=== PATIENT | female | born 1990 | race Asian ===

== ENCOUNTER 2016-10-01 07:11 | Inpatient (IN) | payer OTHER ==
[~2016-10-01] VITALS: Ht 157.5 cm; Wt 77.5 kg
[2016-10-01 07:24] VITALS: BP 146/86; PULSE 86; RESP 16; Ht 157.5 cm; Wt 77.5 kg
[2016-10-01] MEDS ORDERED: PRENAT PO (07:27)
--- NOTE | 2016-10-01 07:33 | TRIAGE ---
OB Triage Datetime Report Generated by CPN: 10/01/2016 07:32 Datetime: 10/01/2016 07:21 Assessment Type: Triage Maternal Assessment Level of Consciousness: Fully Conscious DTR's/Clonus: DTRs 2+ Headache: Denies Blurred Vision: No Respiratory Effort: Unlabored; Regular Rhythm; Equal Expansion Breath Sounds, Left: Clear and Equal Breath Sounds, Right: Clear and Equal Nausea/Vomiting: Denies RUQ Epigastric Pain: Denies Lower Extremities Edema: None Degree: None Upper Extremities Edema: numbness on both hands Fall Risk Assessment History of Falling: (0) No Secondary Diagnosis: (0) No Ambulatory Aid: (0) Bedrest/Nurse Assist IV Therapy: (0) No Gait: (0) Normal/Bedrest/Immobile Mental Status: (0) Oriented to Own Ability Fall Score: 0 Fall Risk Score Definition: No Risk: No action required Datetime: 10/01/2016 07:20 EGA: 40.6 Datetime: 10/01/2016 07:18 Time of Arrival: 10/01/2016 07:00 Arrived By: Ambulatory Arrived From: Home Chief Complaint: pt. came to hospital with prescription for nst, u/s for bpp, efw due to post date Movement: Present Contractions: Denies/Absent Rupture of Membranes: Denies Vaginal Bleeding: None Vaginal Discharge: Denies Recent Sexual Intercouse: Denies Abdominal Trauma: Not Applicable Patient Complaints: None Time Provider Notified: 10/01/2016 07:22 Provider Notified: jam Initial Plan: u/s for bpp, efw, nst
[2016-10-01] MEDS ORDERED: LACTATED RINGER'S 1,000 ML IV SCH (07:54)
[2016-10-01] MEDS ORDERED: OXYTOCIN 30 UNITS/LR 500 ML IV PRN ×2 (08:00→12:00)
[2016-10-01] MEDS ORDERED: METHYLERGONOVINE 0.2 MG INJ IM PRN ×2 (08:00→12:00)
[2016-10-01] MEDS ORDERED: OXYTOCIN 30 UNITS/LR 500 ML IV SCH (08:00)
[2016-10-01] MEDS ORDERED: CEFAZOLIN 2 GM/50 ML (PMX) 50 ML IVPB SCH (08:00)
[2016-10-01] MEDS ORDERED: MISOPROSTOL 200 MCG TAB PR PRN ×2 (08:00→12:00)
[2016-10-01] MEDS ORDERED: CARBOPROST 250 MCG INJ IM PRN ×2 (08:00→12:00)
--- NOTE | 2016-10-01 08:08 | RADRPT ---
PROCEDURE: US OB. CLINICAL INDICATION: Size and dates , post dates TECHNIQUE: Multiple sonographic images of the pelvis and gravid uterus were obtained. The images were reviewed on a PACS workstation. COMPARISON: No prior studies are available for comparison. FINDINGS: There is a single viable intrauterine gestation. Cardiac activity is present with 132 beats per min edward. There is a breech presentation. The placenta is posterior. There is no evidence for an abruption or placenta previa. There is a decreased amount of amniotic fluid with an SHIVA = 5.1 cm. Measurements were made in order to determine age. The results are as follows: BPD =10 cm HC =35.9 cm AC =36.8 cm FL =6.8 cm Estimated gestational age of approximately 38 weeks and 6 days based on ultrasound measurements. Clinical age: 40 weeks and 6 days. The estimated date of delivery is 10/09/16, based on ultrasound measurements. The EFW = 3892 g, 60.6%, based on LMP age. RPTAT: AA IMPRESSION: Single viable intrauterine gestation of approximately 38 weeks and 6 days based on ultrasound measu rements. Oligohydramnios. .Osman Juan MD, Date Time Electronically viewed and signed by .Osman Juan MD, on 10/01/2016 08:08 .S/
--- NOTE | 2016-10-01 08:09 | RADRPT ---
PROCEDURE: US OB biophysical profile. CLINICAL INDICATION: decreased movements TECHNIQUE: Multiple sonographic images of the pelvis were obtained. The images were reviewed on a PACS workstation. COMPARISON: No prior studies are available for comparison. FINDINGS: There is a single viable intrauterine gestation. Cardiac activity is present with 134 beats per min edward. There is a breech presentation. The placenta is posterior. There is no evidence of placental abruption. There is a decreased amount of amniotic fluid with an SHIVA = 5.1 cm. Biophysical profile: movement 2/2 tone 2/2. breathing 2/2 SHIVA 2/2 Total 01/29 RPTAT: AA . IMPRESSION: Normal biophysical profile. Oligohydramnios. . .Osman Juan MD, Date Time Electronically viewed and signed by .Osman Juan MD, MD on 10/01/2016 08:08 .S/
[2016-10-01 08:29] LABS: ADD SCAN DIFF NO
[2016-10-01 08:32] LABS: BASOPHIL # 0.1 10^3/ul (0.0-0.1); BASOPHILS % 0.6 % (0.0-2.0); EOSINOPHILS # 0.5 10^3/ul (0.0-0.5); HEMATOCRIT 39.4 % (37.0-47.0); LYMPHOCYTES # 3.1 10^3/ul (0.8-2.9); LYMPHOCYTES % 25.8 % (15.0-51.0); MEAN CORPUSCULAR HEMOGLOBIN 33.9 pg (29.0-33.0); MEAN CORPUSCULAR HGB CONC 35.5 g/dl (32.0-37.0); MEAN CORPUSCULAR VOLUME 95.4 fl (82.0-101.0); MEAN PLATELET VOLUME 11.5 fl (7.4-10.4); MONOCYTES % 8.4 % (0.0-11.0); NEUTROPHIL # 6.8 10^3/ul (1.6-7.5); NEUTROPHILS % 57.3 % (39.0-77.0); PLATELET COUNT 201 10^3/UL (140-415); RED BLOOD COUNT 4.13 10^6/ul (4.20-5.40); RED CELL DISTRIBUTION WIDTH 12.5 % (11.5-14.5); WHITE BLOOD COUNT 11.8 10^3/ul (4.8-10.8)
[2016-10-01 08:46] LABS: INR 0.88; PROTIME 11.9 Sec (12.2-14.2); PT RATIO 0.9
[2016-10-01 08:47] LABS: PARTIAL THROMBOPLASTIN TIME 29.4 Sec (25.0-35.0); POTASSIUM 3.8 mmol/L (3.5-5.1)
[2016-10-01] MEDS ORDERED: ONDANSETRON 4 MG INJ IV STA (08:47)
[2016-10-01 08:49] LABS: BILIRUBIN,INDIRECT 0.4 mg/dl (0-1.1); BILIRUBIN,TOTAL 0.4 mg/dl (0.2-1.3); CREATININE 0.68 mg/dl (0.44-1.00)
[2016-10-01] MEDS ORDERED: ONDANSETRON 4 MG INJ ONE (08:49)
[2016-10-01] MEDS ORDERED: CITRIC ACID/NA CITRATE 30 ML CUP ONE (08:49)
[2016-10-01 08:50] LABS: URIC ACID 6.8 mg/dl (3.1-7.9)
[2016-10-01] MEDS ORDERED: METOCLOPRAMIDE 10 MG INJ ONE (09:00)
[2016-10-01] MEDS ORDERED: OXYTOCIN 10 UNIT INJ ONE (09:00)
[2016-10-01] MEDS ORDERED: CITRIC ACID/NA CITRATE 30 ML CUP PO ONE (09:00)
[2016-10-01] MEDS ORDERED: morphine SULFATE/PF (10 MG/10 ML) INJ ONE (09:00)
[2016-10-01] MEDS ORDERED: PHENYLephrine (100 MCG/ML) 5ML SYG ONE (09:00)
[2016-10-01] MEDS ORDERED: KETOROLAC 30 MG INJ ONE (09:00)
[2016-10-01] MEDS ORDERED: DEXAMETHASONE 4 MG/ML 1 ML INJ ONE (09:00)
[2016-10-01] MEDS ORDERED: HYDROmorphONE 1 MG/ML SYG IV PRN ×2 (10:00)
[2016-10-01] MEDS ORDERED: DIPHENHYDRAMINE 50 MG INJ IV PRN (10:00)
[2016-10-01] MEDS ORDERED: morphine 2 MG INJ IV PRN ×2 (10:00)
[2016-10-01] MEDS ORDERED: KETOROLAC 30 MG INJ IV PRN (10:00)
[2016-10-01] MEDS ORDERED: PROCHLORPERAZINE 10 MG INJ IV PRN (10:00)
[2016-10-01] MEDS ORDERED: NALOXONE (0.4 MG/ML) INJ IV PRN (10:00)
[2016-10-01] MEDS ORDERED: ONDANSETRON 4 MG INJ IV PRN (10:00)
--- NOTE | 2016-10-01 10:08 | HP ---
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 Rubella: immune RPR/VDRL: Negative GBS Status: Negative HBsAG: Negative OB Admission Exam Vital Signs Vital Signs Vital Signs Date Time Temp Pulse Resp B/P Pulse Ox O2 Delivery O2 Flow Rate FiO2 10/01/16 07:24 98.2 86 16 146/86 Physical Exam HEENT: WNL Heart: Rhythm Normal Lungs: Clear, Equal Abdomen: WNL Reflexes: Normal Cervical Dilatation: None Effacement: 0% Station: Other (Breech presented) Membranes: Intact Accelerations: Accelerations Present Decelerations: No Decelerations Varibility: Moderate Contractions on Admission: None Last 72 hours Lab Results CBC & BMP 10/01/16 08:15 Liver Function Test 10/01/16 08:15 Alanine Aminotransferase (ALT/SGPT) 21 Albumin 4.0 Alkaline Phosphatase 144 H Aspartate Amino Transf (AST/SGOT) 28 Direct Bilirubin 0.00 Total Protein 8.0 MT FIGUEROA MD Oct 01, 2016 10:08
--- NOTE | 2016-10-01 10:49 | OPR ---
DATE OF OPERATION: 10/01/2016 PREOPERATIVE DIAGNOSIS: Forty weeks 6 days breech presentation. POSTOPERATIVE DIAGNOSIS: Forty weeks 6 days with breech presentation. OPERATION PERFORMED: Primary transverse low cervical section. SURGEON: Mt Fonseca MD CHEMICAL ENGINEERING TECHNOLOGIST: Sal Mcdermott MD ANESTHESIA: Spinal. ANESTHESIOLOGIST: Agustin Baer MD FINDINGS: Live baby girl with the 9 and 9. DETAILS OF THE PROCEDURE: Under satisfactory spinal anesthesia, the patient was prepped and draped and placed in supine position, tilted to the left. Pfannenstiel incision was made, incision carried through the subcutaneous tissue. Bleeders brought under control with electrocautery. Fascia incis ed to the length of the incision. Rectus muscle divided in midline. Peritoneum exposed, entered th rough a transverse incision. Exploration of abdomen revealed a gravid uterus at term, normal appear ing tubes and ovaries. Bladder flap was developed. Transverse incision was made in the lower segme nt of the uterus. Amniotic sac ruptured. Meconium stained amniotic fluid noted. Live baby girl wa s delivered from priscilla breech presentation. Shoulders delivered without any difficulty posterior sh oulder first and then the anterior shoulder. Head delivered with Mauriceau maneuver. Cord was clam ped after stop pulsation. Nasal oropharyngeal suction was performed and baby handed to the team for immediate attention. Patient received 20 units of Pitocin. Placenta delivered manually i ntact. It was meconium stained and it was sent to pathology. Uterine cavity cleaned with wet spong e and drainage established. Uterus closed in 2 layers using Monocryl #1 in continuous fashion. Per itoneal cavity irrigated with warm saline. Sponge, needle and instrument reported to be correct. A bdominal peritoneum closed with 2-0 chromic catgut continuously. Rectus muscle approximated and timo sed with #1 PDS in a continuous fashion. Subcutaneous tissue approximated with interrupted 2-0 mixer driver esau catgut. Skin closed with linda. Estimated blood loss 500 to 600 mL. Urine bag contained 200 mL of clear urine. Patient tolerated procedure well, transferred to recovery room in a good condit ion. Dictated By: MT FONSECA MD HF/NTS Conf#: [id number] DID#: [id number] CC: SAL MCDERMOTT MD;*EndCC*
[2016-10-01 11:21] LABS: ADD UMIC YES; URINE BILIRUBIN (Dip) NEGATIVE (NEGATIVE); URINE BLOOD (Dip) TRACE (NEGATIVE); URINE COLOR LT. YELLOW (YELLOW); URINE GLUCOSE (Dip) NEGATIVE (NEGATIVE); URINE KETONES (Dip) NEGATIVE (NEGATIVE); URINE LEUKOCYTE ESTERASE (Dip) NEGATIVE (NEGATIVE); URINE NITRITE (Dip) NEGATIVE (NEGATIVE); URINE TOTAL PROTEIN (Dip) NEGATIVE (NEGATIVE); URINE UROBILINOGEN (Dip) 0.2 E.U./dL (0.1-1.0)
[2016-10-01 11:37] LABS: MUCUS,URINE FEW; SQUAMOUS EPITHELIAL CELL,UR FEW
[2016-10-01] MEDS ORDERED: ACETAMINOPHEN/CODEINE #3 TAB PO PRN ×2 (12:00)
[2016-10-01] MEDS ORDERED: LANOLIN 7 GM TUBE TOP PRN (12:00)
[2016-10-01] MEDS: IBUPROFEN 600 MG TAB PO SCH ×2 (12:00→18:00)
[2016-10-01] MEDS ORDERED: CEFAZOLIN 1 GM/50 ML (PMX) 50 ML IVPB SCH (12:00)
[2016-10-01 12:17] VITALS: BP 125/66; PULSE 63; RESP 18
[2016-10-01 13:00] VITALS: BP 123/68; PULSE 65; RESP 16
[2016-10-01] MEDS: OXYTOCIN 30 UNITS/LR 500 ML IV SCH ×3 (15:19→19:59)
[2016-10-01 16:00] VITALS: BP 131/69; PULSE 70; RESP 16
[2016-10-01 19:30] VITALS: BP 135/75; PULSE 82; RESP 20
[2016-10-01] MEDS: SENNA/DOCUSATE NA (8.6MG/50MG) TAB PO SCH (21:01)
[2016-10-02] VITALS: BP 125/71; PULSE 74; RESP 19
[2016-10-02] MEDS: OXYTOCIN 30 UNITS/LR 500 ML IV SCH ×7 (00:20→23:59)
[2016-10-02 04:00] VITALS: BP 132/69; RESP 19
[2016-10-02] MEDS ORDERED: LACTATED RINGER'S 1,000 ML IV ONE (04:30)
[2016-10-02] MEDS: IBUPROFEN 600 MG TAB PO SCH ×5 (06:00→23:49)
--- NOTE | 2016-10-02 07:10 | OPPN ---
Date/Time of Note Date/Time of Note DATE: 10/02/16 TIME: 07:09 Post-Anesthesia Notes Post-Anesthesia Note Last documented vital signs Vital Signs Date Time Temp Pulse Resp B/P Pulse Ox O2 Delivery O2 Flow Rate FiO2 10/02/16 04:00 98.1 19 132/69 Room Air 10/02/16 03:20 97 21 10/02/16 00:00 74 Activity: WNL Respiratory function: WNL Cardiovascular function: WNL Mental status: Baseline Pain reasonably controlled: Yes Hydration appropriate: Yes Nausea/Vomiting absent: Yes XOCHILT ZEPEDA MD Oct 02, 2016 07:10
[2016-10-02 07:26] VITALS: BP 121/57; PULSE 87; RESP 18
--- NOTE | 2016-10-02 09:46 | PN ---
Date/Time of Note Date/Time of Note DATE: 10/02/16 TIME: 09:45 OB Subjective Subjective Subjective Post day Afebrile vital signs stable abdomen soft mildly distended bowel sounds present uterus firm lochia normal extremity normal Laboratory Tests Test 10/01/16 10:45 Urine Color LT. YELLOW Urine Clarity CLEAR Urine pH 6.5 Urine Specific [place] 1.020 Urine Ketones NEGATIVE Urine Nitrite NEGATIVE Urine Bilirubin NEGATIVE Urine Urobilinogen 0.2 E.U./dL Urine Leukocyte Esterase NEGATIVE Urine Microscopic RBC 2-5/HPF Urine Microscopic WBC 0-2/HPF Urine Squamous Epithelial Cells FEW Urine Mucus FEW Urine Hemoglobin TRACE Urine Glucose NEGATIVE% Urine Total Protein NEGATIVE Current Medications Medications (Trade) Dose Ordered Sig/Mary Route PRN Reason Start Time Stop Time Status Last Admin Dose Admin Lactated Ringer's 1,000 ml @ 125 mls/hr Q8H IV 10/01/16 07:54 10/01/16 12:02 DC 10/01/16 08:07 Cefazolin Sodium/ Dextrose 50 ml @ 100 mls/hr ONCE IVPB 10/01/16 08:00 10/01/16 12:01 DC Oxytocin/Lactated Ringer's 500 ml @ 125 mls/hr ONCE IV 10/01/16 08:00 10/01/16 12:01 DC 10/01/16 11:04 Oxytocin/Lactated Ringer's 500 ml @ 0 mls/hr ONCE PRN IV For Hemorrhage Management 10/01/16 08:00 10/01/16 12:01 DC Methylergonovine Maleate (Methergine) 0.2 mg ONCE PRN IM VAGINAL BLEEDING 10/01/16 08:00 10/01/16 12:02 DC Carboprost Tromethamine (Hemabate) 250 mcg ONCE PRN IM VAGINAL BLEEDING 10/01/16 08:00 10/01/16 12:02 DC Misoprostol (Cytotec) 1,000 mcg ONCE PRN OK VAGINAL BLEEDING 10/01/16 08:00 10/01/16 12:02 DC Citric Acid/ Sodium Citrate (Bicitra) 30 ml ONCE ONCE PO 10/01/16 09:00 10/01/16 09:01 DC 10/01/16 08:45 Ondansetron HCl (Zofran Inj) 4 mg ONCE STAT IV 10/01/16 08:47 10/01/16 08:55 DC 10/01/16 08:45 Citric Acid/ Sodium Citrate (Bicitra) 30 ml STK-MED ONCE .ROUTE 10/01/16 08:49 10/01/16 08:50 DC Ondansetron HCl (Zofran Inj) 4 mg STK-MED ONCE .ROUTE 10/01/16 08:49 10/01/16 08:50 DC Morphine Sulfate (Duramorph) 10 mg STK-MED ONCE .ROUTE 10/01/16 09:00 10/01/16 09:01 DC Phenylephrine HCl (Ken-Synephrine Inj Syg) 500 mcg STK-MED ONCE .ROUTE 10/01/16 09:00 10/01/16 09:01 DC Metoclopramide HCl (Reglan) 10 mg STK-MED ONCE .ROUTE 10/01/16 09:00 10/01/16 09:01 DC Oxytocin (Oxytocin) 10 units STK-MED ONCE .ROUTE 10/01/16 09:00 10/01/16 09:01 DC Ketorolac Tromethamine (Toradol) 30 mg STK-MED ONCE .ROUTE 10/01/16 09:00 10/01/16 09:01 DC Dexamethasone (Decadron) 4 mg STK-MED ONCE .ROUTE 10/01/16 09:00 10/01/16 09:01 DC Naloxone HCl (Narcan) 0.1 mg Q2M PRN IV FOR RESP RATE 8 OR LESS 10/01/16 10:00 10/02/16 08:39 DC Ketorolac Tromethamine (Toradol) 30 mg Q6H PRN IV PAIN 10/01/16 10:00 10/01/16 12:18 DC Morphine Sulfate (morphine) 2 mg Q3H PRN IV PAIN LEVEL 1-5 10/01/16 10:00 10/02/16 08:39 DC Morphine Sulfate (morphine) 4 mg Q3H PRN IV PAIN LEVEL 6-10 10/01/16 10:00 10/02/16 08:39 DC Hydromorphone HCl (Dilaudid) 0.2 mg Q3H PRN IV PAIN LEVEL 1-5 10/01/16 10:00 10/02/16 08:39 DC 10/01/16 17:16 Hydromorphone HCl (Dilaudid) 0.4 mg Q3H PRN IV PAIN LEVEL 6-10 10/01/16 10:00 10/02/16 08:39 DC 10/02/16 07:26 Diphenhydramine HCl (Benadryl) 25 mg Q6H PRN IV ITCHING 10/01/16 10:00 10/02/16 08:39 DC Ondansetron HCl (Zofran Inj) 4 mg Q6H PRN IV NAUSEA AND/OR VOMITING 10/01/16 10:00 10/02/16 08:39 DC Prochlorperazine (Compazine Inj) 10 mg ONCE PRN IV NAUSEA AND/OR VOMITING 10/01/16 10:00 10/02/16 08:39 DC Miscellaneous Information (* Miscellaneous Pharmacy Order) Duramorph: 0.2 mg Spi... GIVEN XX 10/01/16 10:00 10/01/16 12:02 DC Acetaminophen/ Codeine Phosphate (Tylenol No.3) 1 tab Q4H PRN PO PAIN LEVEL 4-6 10/01/16 12:00 Acetaminophen/ Codeine Phosphate (Tylenol No.3) 2 tab Q4H PRN PO PAIN LEVEL 7-10 10/01/16 12:00 Oxycodone/ Acetaminophen (Percocet (5/ 325)) 1 tab Q4H PRN PO PAIN LEVEL 4-6 10/01/16 12:00 Oxycodone/ Acetaminophen (Percocet (5/ 325)) 2 tab Q4H PRN PO PAIN LEVEL 7-10 10/01/16 12:00 Ibuprofen (Motrin) 600 mg Q6 PO 10/01/16 12:00 Simethicone (Mylicon) 160 mg Q8H PRN PO DISTENSION/GAS/BLOATING 10/01/16 12:00 Senna/Docusate Sodium (Senokot-S) 1 tab BID PO 10/01/16 21:00 10/01/16 21:01 Lanolin (Nfj-U-Dnowdu) 1 applic BEDSIDE MEDICATION PRN TOP BEDSIDE FOR TITUS TO NIPPLES 10/01/16 12:00 Diphtheria/ Tetanus/Acell Pertussis 0.5 ml 0.5 ml ONCE ONCE IM* 10/04/16 09:00 10/04/16 09:01 Oxytocin/Lactated Ringer's 500 ml @ 0 mls/hr ONCE PRN IV For Hemorrhage Management 10/01/16 12:00 Methylergonovine Maleate (Methergine) 0.2 mg ONCE PRN IM VAGINAL BLEEDING 10/01/16 12:00 Carboprost Tromethamine (Hemabate) 250 mcg ONCE PRN IM VAGINAL BLEEDING 10/01/16 12:00 Misoprostol 1000 mcg 1,000 mcg ONCE PRN OK VAGINAL BLEEDING 10/01/16 12:00 Cefazolin Sodium 50 ml @ 100 mls/hr ONCE IVPB 10/01/16 12:00 10/01/16 12:29 DC 10/01/16 17:07 Oxytocin/Lactated Ringer's 500 ml @ 125 mls/hr Q4H IV 10/01/16 11:59 10/02/16 00:20 Lactated Ringer's (Lr) 1,000 ml @ 125 mls/hr Q8H ONCE IV 10/02/16 04:30 10/02/16 12:29 10/02/16 04:28 ambulation recommended MT FIGUEROA MD Oct 02, 2016 09:46
[2016-10-02 09:57] LABS: ADD SCAN DIFF NO
[2016-10-02 10:02] LABS: BASOPHILS % 0.2 % (0.0-2.0); EOSINOPHILS # 0.2 10^3/ul (0.0-0.5); HEMATOCRIT 33.3 % (37.0-47.0); HEMOGLOBIN 11.4 g/dl (12.0-16.0); LYMPHOCYTES # 3.1 10^3/ul (0.8-2.9); LYMPHOCYTES % 17.7 % (15.0-51.0); MEAN CORPUSCULAR HEMOGLOBIN 32.9 pg (29.0-33.0); MEAN CORPUSCULAR HGB CONC 34.2 g/dl (32.0-37.0); MEAN CORPUSCULAR VOLUME 96.2 fl (82.0-101.0); MEAN PLATELET VOLUME 11.5 fl (7.4-10.4); MONOCYTE # 1.2 10^3/ul (0.3-0.9); MONOCYTES % 6.6 % (0.0-11.0); NEUTROPHIL # 12.8 10^3/ul (1.6-7.5); PLATELET COUNT 179 10^3/UL (140-415); RED BLOOD COUNT 3.46 10^6/ul (4.20-5.40); RED CELL DISTRIBUTION WIDTH 12.9 % (11.5-14.5); WHITE BLOOD COUNT 17.5 10^3/ul (4.8-10.8)
[2016-10-02] MEDS: SENNA/DOCUSATE NA (8.6MG/50MG) TAB PO SCH ×2 (11:10→21:02)
[2016-10-02] MEDS: OXYCODONE/ACETAMINOPHEN (5/325) TAB PO PRN ×3 (11:11→22:57)
[2016-10-02 16:00] VITALS: BP 124/74; PULSE 65; RESP 16
[2016-10-02 19:35] VITALS: BP 123/61; PULSE 80
[2016-10-03] MEDS: OXYTOCIN 30 UNITS/LR 500 ML IV SCH ×3 (03:59→11:59)
[2016-10-03 04:20] VITALS: BP 128/70; RESP 18
[2016-10-03] MEDS: IBUPROFEN 600 MG TAB PO SCH ×3 (05:44→18:09)
[2016-10-03 08:15] VITALS: BP 116/69; PULSE 77; RESP 16
--- NOTE | 2016-10-03 08:41 | PN ---
Date/Time of Note Date/Time of Note DATE: 10/03/16 TIME: 08:40 OB Subjective Subjective Subjective Post day 1 Afebrile vital signs stable, abdomen soft mildly distended good bowel sounds, incision dry, extremities normal, ambulation recommended Laboratory Tests Test 10/02/16 09:53 White Blood Count 17.510^3/ul Red Blood Count 3.4610^6/ul Hemoglobin 11.4g/dl Hematocrit 33.3% Mean Corpuscular Volume 96.2fl Mean Corpuscular Hemoglobin 32.9pg Mean Corpuscular Hemoglobin Concent 34.2g/dl Red Cell Distribution Width 12.9% Platelet Count 14409^3/UL Mean Platelet Volume 11.5fl Neutrophils % 73.0% Lymphocytes % 17.7% Monocytes % 6.6% Eosinophils % 1.0% Basophils % 0.2% Nucleated Red Blood Cells % 0.0/100WBC Neutrophils # 12.810^3/ul Lymphocytes # 3.110^3/ul Monocytes # 1.210^3/ul Eosinophils # 0.210^3/ul Basophils # 0.010^3/ul Nucleated Red Blood Cells # 0.010^3/ul Current Medications Medications (Trade) Dose Ordered Sig/Mary Route PRN Reason Start Time Stop Time Status Last Admin Dose Admin Lactated Ringer's 1,000 ml @ 125 mls/hr Q8H IV 10/01/16 07:54 10/01/16 12:02 DC 10/01/16 08:07 Cefazolin Sodium/ Dextrose 50 ml @ 100 mls/hr ONCE IVPB 10/01/16 08:00 10/01/16 12:01 DC Oxytocin/Lactated Ringer's 500 ml @ 125 mls/hr ONCE IV 10/01/16 08:00 10/01/16 12:01 DC 10/01/16 11:04 Oxytocin/Lactated Ringer's 500 ml @ 0 mls/hr ONCE PRN IV For Hemorrhage Management 10/01/16 08:00 10/01/16 12:01 DC Methylergonovine Maleate (Methergine) 0.2 mg ONCE PRN IM VAGINAL BLEEDING 10/01/16 08:00 10/01/16 12:02 DC Carboprost Tromethamine (Hemabate) 250 mcg ONCE PRN IM VAGINAL BLEEDING 10/01/16 08:00 10/01/16 12:02 DC Misoprostol (Cytotec) 1,000 mcg ONCE PRN MO VAGINAL BLEEDING 10/01/16 08:00 10/01/16 12:02 DC Citric Acid/ Sodium Citrate (Bicitra) 30 ml ONCE ONCE PO 10/01/16 09:00 10/01/16 09:01 DC 10/01/16 08:45 Ondansetron HCl (Zofran Inj) 4 mg ONCE STAT IV 10/01/16 08:47 10/01/16 08:55 DC 10/01/16 08:45 Citric Acid/ Sodium Citrate (Bicitra) 30 ml STK-MED ONCE .ROUTE 10/01/16 08:49 10/01/16 08:50 DC Ondansetron HCl (Zofran Inj) 4 mg STK-MED ONCE .ROUTE 10/01/16 08:49 10/01/16 08:50 DC Morphine Sulfate (Duramorph) 10 mg STK-MED ONCE .ROUTE 10/01/16 09:00 10/01/16 09:01 DC Phenylephrine HCl (Ken-Synephrine Inj Syg) 500 mcg STK-MED ONCE .ROUTE 10/01/16 09:00 10/01/16 09:01 DC Metoclopramide HCl (Reglan) 10 mg STK-MED ONCE .ROUTE 10/01/16 09:00 10/01/16 09:01 DC Oxytocin (Oxytocin) 10 units STK-MED ONCE .ROUTE 10/01/16 09:00 10/01/16 09:01 DC Ketorolac Tromethamine (Toradol) 30 mg STK-MED ONCE .ROUTE 10/01/16 09:00 10/01/16 09:01 DC Dexamethasone (Decadron) 4 mg STK-MED ONCE .ROUTE 10/01/16 09:00 10/01/16 09:01 DC Naloxone HCl (Narcan) 0.1 mg Q2M PRN IV FOR RESP RATE 8 OR LESS 10/01/16 10:00 10/02/16 08:39 DC Ketorolac Tromethamine (Toradol) 30 mg Q6H PRN IV PAIN 10/01/16 10:00 10/01/16 12:18 DC Morphine Sulfate (morphine) 2 mg Q3H PRN IV PAIN LEVEL 1-5 10/01/16 10:00 10/02/16 08:39 DC Morphine Sulfate (morphine) 4 mg Q3H PRN IV PAIN LEVEL 6-10 10/01/16 10:00 10/02/16 08:39 DC Hydromorphone HCl (Dilaudid) 0.2 mg Q3H PRN IV PAIN LEVEL 1-5 10/01/16 10:00 10/02/16 08:39 DC 10/01/16 17:16 Hydromorphone HCl (Dilaudid) 0.4 mg Q3H PRN IV PAIN LEVEL 6-10 10/01/16 10:00 10/02/16 08:39 DC 10/02/16 07:26 Diphenhydramine HCl (Benadryl) 25 mg Q6H PRN IV ITCHING 10/01/16 10:00 10/02/16 08:39 DC Ondansetron HCl (Zofran Inj) 4 mg Q6H PRN IV NAUSEA AND/OR VOMITING 10/01/16 10:00 10/02/16 08:39 DC Prochlorperazine (Compazine Inj) 10 mg ONCE PRN IV NAUSEA AND/OR VOMITING 10/01/16 10:00 10/02/16 08:39 DC Miscellaneous Information (* Miscellaneous Pharmacy Order) Duramorph: 0.2 mg Spi... GIVEN XX 10/01/16 10:00 10/01/16 12:02 DC Acetaminophen/ Codeine Phosphate (Tylenol No.3) 1 tab Q4H PRN PO PAIN LEVEL 4-6 10/01/16 12:00 Acetaminophen/ Codeine Phosphate (Tylenol No.3) 2 tab Q4H PRN PO PAIN LEVEL 7-10 10/01/16 12:00 Oxycodone/ Acetaminophen (Percocet (5/ 325)) 1 tab Q4H PRN PO PAIN LEVEL 4-6 10/01/16 12:00 10/02/16 22:57 Oxycodone/ Acetaminophen (Percocet (5/ 325)) 2 tab Q4H PRN PO PAIN LEVEL 7-10 10/01/16 12:00 Ibuprofen (Motrin) 600 mg Q6 PO 10/01/16 12:00 10/03/16 05:44 Simethicone (Mylicon) 160 mg Q8H PRN PO DISTENSION/GAS/BLOATING 10/01/16 12:00 Senna/Docusate Sodium (Senokot-S) 1 tab BID PO 10/01/16 21:00 10/02/16 21:02 Lanolin (Vwi-B-Lbpzlp) 1 applic BEDSIDE MEDICATION PRN TOP BEDSIDE FOR TITUS TO NIPPLES 10/01/16 12:00 Diphtheria/ Tetanus/Acell Pertussis 0.5 ml 0.5 ml ONCE ONCE IM* 10/04/16 09:00 10/04/16 09:01 Oxytocin/Lactated Ringer's 500 ml @ 0 mls/hr ONCE PRN IV For Hemorrhage Management 10/01/16 12:00 Methylergonovine Maleate (Methergine) 0.2 mg ONCE PRN IM VAGINAL BLEEDING 10/01/16 12:00 Carboprost Tromethamine (Hemabate) 250 mcg ONCE PRN IM VAGINAL BLEEDING 10/01/16 12:00 Misoprostol 1000 mcg 1,000 mcg ONCE PRN MO VAGINAL BLEEDING 10/01/16 12:00 Cefazolin Sodium 50 ml @ 100 mls/hr ONCE IVPB 10/01/16 12:00 10/01/16 12:29 DC 10/01/16 17:07 Oxytocin/Lactated Ringer's 500 ml @ 125 mls/hr Q4H IV 10/01/16 11:59 10/02/16 00:20 Lactated Ringer's (Lr) 1,000 ml @ 125 mls/hr Q8H ONCE IV 10/02/16 04:30 10/02/16 12:29 DC 10/02/16 04:28 MT FIGUEROA MD Oct 03, 2016 08:41
[2016-10-03] MEDS: SENNA/DOCUSATE NA (8.6MG/50MG) TAB PO SCH ×2 (08:49→21:00)
[2016-10-03] MEDS: OXYCODONE/ACETAMINOPHEN (5/325) TAB PO PRN ×3 (08:49→22:59)
[2016-10-03] MEDS ORDERED: NA PHOSPHATE/BIPHOS 133 ML ENEMA PR ONE (09:00)
[2016-10-03 16:57] VITALS: BP 130/81; PULSE 81; RESP 19
[2016-10-03 20:05] VITALS: BP 131/75; PULSE 75; RESP 19
[2016-10-04] MEDS: IBUPROFEN 600 MG TAB PO SCH ×3 (00:23→11:39)
[2016-10-04 04:16] VITALS: BP 129/79; PULSE 78; RESP 18
[2016-10-04 08:00] VITALS: BP 132/70; PULSE 67; RESP 18
[2016-10-04] MEDS: SENNA/DOCUSATE NA (8.6MG/50MG) TAB PO SCH (09:00)
[2016-10-04] MEDS ORDERED: DIPHTH/TET/ACEL PERTUSS (ADULT) 0.5 ML VIAL IM* ONE (09:00)
--- NOTE | 2016-10-04 09:46 | PD.PPDC ---
INFORMATION TECHNOLOGY ADVISOR Discharge Instruction Condition Patient Condition: Good Diet Diet: Resume Regular Diet Activity/Restrictions Restrictions: No Exercising No Lifting No Driving No Sexual Activity Nothing in the Vagina No [place] No Tampons, douche Wound/Drain Care Instructions Wound/Drain Care Instructions: Remove Steri Strips in 1 week Follow-up Follow-up with Physician: 4, Day/Days Provider Information: Appointment clinic in 4 days to discontinue linda Return to clinic for BATCH UNLOADER Instructions: Fever greater than 101 Worsening abdominal pain Excessive Vaginal Bleeding More than 2 pads per hour Unable to tolerate diet OB Instructions: Breast Tenderness Depression Blurried Vision Headache Surgical Instructions: Incisional Drainage Incisional Redness MT FIGUEROA MD Oct 04, 2016 09:46
--- NOTE | 2016-10-04 09:52 | DS ---
Date/Time of Note Date/Time of Note DATE: 10/04/16 TIME: 09:48 Obstetrical Discharge Record Final Diagnosis Final Diagnosis: Term delivered Section Section: Primary Complications Other (Breech presentation) Augmentation: No Induction: No Rupture of Membranes: No Condition on Discharge Physical Assessment Last Vitals: This is a 26 years old female third day post primary due to breech presentation had uneventful postoperative course in the hospital did not spike temperature or having problem with bowel function or urination on the third day post op her incision inspected found free of inflammation and infection patient was discharged home with a prescription of analgesics an appointment to the office in 4 days to discontinue linda at the time of discharge patient's condition was satisfactory. Voiding: Yes Bowel Movement: Yes Breast: Soft, non-tender Fundus: Firm Abdomen and Incision: Healing well free of inflammation or infection Calf Tenderness: No Patient Condition: Good MT FIGUEROA MD Oct 04, 2016 09:52
== END 2016-10-04 14:15 | disposition home or self-care (01) | DRG 766 ==
LOC: OBT 07:11 → L-D 07:12 → OBT 07:34 → L-D 07:36 → PP1 12:17
PROVIDERS: ADMIT Obstetrics & Gynecology; ATTEND Obstetrics & Gynecology
PROC: 10D00Z1 Extraction of Products of Conception, Low, Open Approach (ICD-10-PCS; principal; 2016-10-01 09:00)
PROC: 3E0234Z Introduction of Serum, Toxoid and Vaccine into Muscle, Percutaneous Approach (ICD-10-PCS; 2016-10-04)
DX: O32.1XX0 Maternal care for breech presentation, not applicable or unspecified (principal); O48.0 Post-term pregnancy; Z3A.40 40 weeks gestation of pregnancy; Z37.0 Single live birth; Z23 Encounter for immunization
CPT/HCPCS: 76815; 76818; 80053; 81001; 81003; 84560; 85025; 85610; 85730; 86592; 86850; 86900; 86901; 87340; 88307; 90715; 94760; 99464; G0463; J0690; J1100; J1170; J1885; J2274; J2370; J2405; J2590; J2765; J7120